=== PATIENT | female | born 1965 | race Two or more races ===

== ENCOUNTER 2017-05-26 20:58 | Emergency (ER) | payer OTHER ==
[~2017-05-26] VITALS: Ht 160 cm; Wt 93.4 kg
[~2017-05-26 20:58] MED LIST: ZOLOFT25 MG ORAL; [UNRECOGNIZED DRUG - OTHER]
[2017-05-26] MEDS ORDERED: NKM (21:07)
[2017-05-26 21:10] VITALS: BP 144/86
[2017-05-27] MEDS ORDERED: Norco 5mg/325mg tab ORAL ONE
[2017-05-27] MEDS ORDERED: IBUPROFEN600 MG ORAL (00:51)
[2017-05-27] MEDS ORDERED: ROBAXIN500 MG PO (00:51)
[2017-05-27 00:55] VITALS: BP 159/89
--- NOTE | 2017-05-27 01:00 | Emergency Room Report ---
History of Present Illness General Chief Complaint: Pain Source: Patient Present Illness HPI 52-year-old female walks in with complaints of pain to left side of neck and lower back After a fall one week ago in the bathroom at [employer] Patient states she slipped on water on the floor and landed on her lower back and back of neck. Denies hitting head, LOC, nausea vomiting saw primary care doctor 2 days ago, he did not do x-rays, a prescription for ibuprofen Some improvement with pain, however now having shooting pain down the left arm denies previous injury to lower back or neck Denies lower extremity weakness, urinary or fecal incontinence Allergies: Coded Allergies: No Known Allergies (Unverified , 05/08/14) Patient History Past Medical History: none Past Surgical History: none Pertinent Family History: none Social History: Denies: smoking, alcohol use, drug use Last Menstrual Period: n/a Now: No Immunizations: UTD Reviewed Nursing Documentation: PMH: Agreed, PSxH: Agreed Review of Systems All Other Systems: negative except mentioned in HPI Physical Exam Vital Signs Date Time Temp Pulse Resp B/P (MAP) Pulse Ox O2 Delivery O2 Flow Rate FiO2 05/26/17 21:00 97.9 68 20 144/86 96 Room Air Sp02 EP Interpretation: reviewed, normal General Appearance: normal inspection, well appearing, no apparent distress, alert, GCS 15, non-toxic Head: normocephalic, atraumatic Eyes: bilateral eye PERRL, bilateral eye EOMI ENT: normal ENT inspection, hearing grossly normal, normal voice Neck: normal inspection, full range of motion, supple, no bony tend, other - No focal c-spine midline ttp. Mostly leftsided lateral ttp. 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, motor strength/tone normal, speech normal Psychiatric: normal inspection, judgement/insight normal, mood/affect normal Skin: normal inspection, normal color, no rash Medical Decision Making Diagnostic Impression: Primary Impression: Musculoskeletal back pain Additional Impressions: Fall Qualified Codes: W19.XXXA - Unspecified fall, initial encounter Neck pain ER Course 52-year-old male with likely musculoskeletal pain after a fall one week ago No acute fracture or dislocation on ER review of x-rays of C-spine or LS-spine Likely musculoskeletal Advise gisele MCKINLEY ER course: Patient has remained stable during ED stay. Patient is to be discharged to home. Prescriptions given are motrin, robaxin Patient is instructed to follow up with their primary care doctor within 5 days. Strict return precautions discussed with patient such as fever, chills, worsening/severe pain, nausea, vomiting, which may indicate severe illness. Patient verbalizes understanding and agrees with plan. Please note that this Emergency Department Report was dictated using [employer] technology software, occasionally this can lead to erroneous entry secondary to interpretation by the dictation equipment Other X-Ray Diagnostic Results Other X-Ray Diagnostic Results #1: X-Ray ordered: Cspine # of Views/Limited Vs Complete: 3 View Indication: Pain EP Interpretation: Yes Interpretation: no dislocation, no soft tissue swelling, no fractures, other - Straightening Impression: No acute disease Electronically Signed by: Dr Andrea Byrne MD Other X-Ray Diagnostic Results #2: X-Ray ordered: LS spine # of Views/Limited Vs Complete: 3 View Indication: Pain Interpretation: no dislocation, no soft tissue swelling, no fractures Impression: No acute disease Electronically Signed by: Dr Andrea Byrne MD Last Vital Signs Date Time Temp Pulse Resp B/P (MAP) Pulse Ox O2 Delivery O2 Flow Rate FiO2 05/26/17 21:00 97.9 68 20 144/86 96 Room Air Status: improved Disposition: HOME, SELF-CARE Condition: Improved Scripts Ibuprofen* (MOTRIN*) 600 Mg Tablet 600 MG ORAL THREE TIMES A DAY for For Pain for 7 Days, #30 TAB 0 Refills Prov: ANDREA BYRNE M.D. 05/27/17 Methocarbamol* (ROBAXIN*) 500 Mg Tablet 500 MG PO TID for 7 Days, #30 TAB 0 Refills Prov: ANDREA BYRNE M.D. 05/27/17 Patient Instructions: Musculoskeletal Pain Additional Instructions: take ibuprofen with Robaxin up to 3 times a day for neck pain or back pain followup with your doctor in 2-3 days if no improvement ANDREA BYRNE M.D. May 27, 2017 01:00
--- NOTE | 2017-05-27 17:54 | Diagnostic Imaging Report ---
Indication: Pain Technique: XRAY SPINE CERV 2-3 VIEWS Comparison: None Findings: There is shortening of the cervical lordosis. No abnormal cervical curvature is noted. There is no evidence to suggest spondylolisthesis. No acute fractures appreciated. No prevertebral soft tissue abnormality is noted. Imaged lung apices are clear. Impression: Straightening of the cervical lordosis. No acute fracture.
--- NOTE | 2017-05-27 17:56 | Diagnostic Imaging Report ---
Indication: Pain Technique: XRAY SPINE LUMBAR 2-3V Comparison: None Findings: There are 5 lumbar type [id number] vertebral bodies. Lumbar lordosis is maintained. There is no spondylolisthesis. There is no compression fraction. There is no acute fracture. There is mild degenerative change manifested by anterior osteophyte formation and disc space narrowing at L4-L5. Copious stool noted throughout the colon. Bowel gas pattern is nonobstructive. No radiopaque foreign body seen. Impression: No evidence of acute fracture or traumatic malalignment.
== END 2017-05-27 00:55 | disposition home or self-care (01) ==
LOC: EMR 21:15
DX: M54.2 Cervicalgia (principal); M54.5 Low back pain; W19.XXXA Unspecified fall, initial encounter; Y92.9 Unspecified place or not applicable
CPT/HCPCS: 72020; 72040; 99284